=== PATIENT | female | born 1995 | race Two or more races ===

== ENCOUNTER 2021-06-12 | Emergency (ER) | payer SELFPAY ==
[~2021-06-12] VITALS: Ht 149.9 cm; Wt 45.5 kg
[2021-06-12 00:09] VITALS: BP 119/96
== END 2021-06-12 01:43 | disposition left against medical advice (07) ==
LOC: EMS 00:01
DX: R10.2 Pelvic and perineal pain (principal); Z53.21 Procedure and treatment not carried out due to patient leaving prior to being seen by health care provider

== ENCOUNTER 2021-07-24 23:09 | Emergency (ER) | payer SELFPAY ==
[~2021-07-24] VITALS: Ht 162.6 cm; Wt 59.1 kg
[2021-07-24 23:11] VITALS: BP 123/91
== END 2021-07-25 00:30 | disposition left against medical advice (07) ==
LOC: EMS 23:15
DX: R10.9 Unspecified abdominal pain (principal); Z53.21 Procedure and treatment not carried out due to patient leaving prior to being seen by health care provider